=== PATIENT | female | born 1960 | race Two or more races ===

== ENCOUNTER 2020-02-29 17:53 | Emergency (ER) | payer OTHER ==
[~2020-02-29] VITALS: Ht 162.6 cm; Wt 70.3 kg
[2020-02-29 18:05] VITALS: BP 156/72
== END 2020-02-29 21:57 | disposition home or self-care (01) ==
LOC: ER 17:53
DX: U07.1 COVID-19 (principal); I25.2 Old myocardial infarction
CPT/HCPCS: 71045; 93005